=== PATIENT | female | born 1955 | race Caucasian/White ===

== ENCOUNTER → 2017-01-28 | Outpatient (CLI) | payer OTHER ==
[~2017-01-28] MED LIST: CITA20TA9 PO; ENOX60IN SQ; FLV1 PO; FLV400 PO; LORA-741 PO; LVNIS60 INJ; WARF5TAB7 PO; WARF5TAB90 PO
--- NOTE | 2017-01-29 14:53 | MAMMOGRAPHY REPORT ---
BILATERAL DIGITAL SCREENING MAMMOGRAM TOMOSYNTHESIS WITH CAD: 01/28/2017 CLINICAL HISTORY: Routine screening. Patient has no complaints. TECHNIQUE: Breast tomosynthesis in addition to standard 2D mammography was performed. Current study was also evaluated with a Computer Aided Detection (CAD) system. COMPARISON: Comparison is made to exams dated: 10/06/2015 mammogram, 10/05/2014 mammogram, 10/04/2013 mammogram, 10/01/2012 mammogram, 10/01/2011 mammogram, and 09/28/2010 mammogram - [facility]. BREAST COMPOSITION: There are scattered areas of fibroglandular density in both breasts. FINDINGS: The parenchymal pattern is similar to prior exams. No developing mass, architectural dis tortion or cluster of suspicious microcalcifications is seen in either breast. IMPRESSION: ACR BI-RADS CATEGORY 2: BENIGN There is no mammographic evidence of malignancy. A 1 year screening mammogram is recommended. The p atient will receive written notification of the results. Approximately 10% of breast cancers are not detected with mammography. A negative mammographic repor t should not delay biopsy if a clinically suggestive mass is present. Tahira Ann M.D. ay/:01/28/2017 17:45:20 De Icer Installer: Jael Dodge, [facility] letter sent: Normal 1/2 BI-RADS Code: ACR BI-RADS Category 2: Benign
== END | disposition home or self-care (01) ==
LOC: C.MAMM 16:06
PROVIDERS: ATTEND Family Medicine
DX: Z12.31 Encounter for screening mammogram for malignant neoplasm of breast (principal)

== ENCOUNTER 2017-03-27 16:10 | Emergency (ER) | payer OTHER ==
[~2017-03-27] VITALS: Ht 162.6 cm; Wt 64.2 kg
[~2017-03-27 16:10] MED LIST changes: -ENOX60IN SQ; -FLV1 PO; -FLV400 PO; -LVNIS60 INJ; -WARF5TAB7 PO; -WARF5TAB90 PO
[2017-03-27 16:18] VITALS: TEMP 36.6; Ht 162.6 cm; Wt 64.2 kg
--- NOTE | 2017-03-27 17:20 | DIAGNOSTIC IMAGING REPORT ---
LEFT KNEE 3 VIEWS CLINICAL HISTORY: Left leg pain and swelling. FINDINGS: AP, crosstable lateral, and sunrise views of the left knee are obtained. No prior studies are available for comparison at the time of dictation. The skeletal structures are osteopenic. No fracture is seen. There is mild tricompartmental degenerative joint space narrowing, greatest at the patellofemoral articulation. No large joint effusion is identified. Mild soft tissue swelling is noted. IMPRESSION: Mild soft tissue swelling with no acute bony abnormality identified. Electronically signed by: Lawrence Cunningham M.D. 03/27/2017 5:19 PM Dictated Date/Time: 03/27/2017 5:11 PM
--- NOTE | 2017-03-27 17:51 | DIAGNOSTIC IMAGING REPORT ---
LEFT LOWER EXTREMITY VENOUS DOPPLER CLINICAL HISTORY: Pain/swelling behind left knee. Old hx of PE. COMPARISON STUDY: No previous studies for comparison. TECHNIQUE: Sonography of the deep venous system of the left lower extremity was performed. Compression and augmentation were evaluated. FINDINGS: There is nonocclusive deep venous thrombus within the left popliteal vein. No additional sites of deep venous thrombus were identified within the left lower extremity. There is a 4.8 x 3.9 x 1.8 cm left popliteal cyst. IMPRESSION: 1. Nonocclusive deep venous thrombus within the left popliteal vein. This thrombus is age indeterminate. 2. 4.8 x 3.9 x 1.8 cm left popliteal cyst. Electronically signed by: Rajan Kramer M.D. 03/27/2017 5:49 PM Dictated Date/Time: 03/27/2017 5:47 PM
[2017-03-27] MEDS ORDERED: LOVENOX TEACHING KIT STA (18:38)
[2017-03-27 18:52] LABS: BASO % 0.2 %; BASO ABS # 0.01 K/uL (0-0.2); COMPLETE YES; EOS % 2.3 %; HEMATOCRIT 42.8 % (37-47); LYMPH ABS # 2.36 K/uL (1.2-3.4); MEAN CELL VOLUME 93.2 fL (80-100); MEAN CORPUSCULAR HGB CONC 34.3 g/dl (32-36); MEAN PLATELET VOLUME 10.1 fL (7.4-10.4); MONO % 6.3 %; NEUT % 50.2 %; PLATELET COUNT 255 K/uL (130-400); RED BLOOD COUNT 4.59 M/uL (4.2-5.4); WHITE BLOOD COUNT 5.76 K/uL (4.8-10.8)
[2017-03-27 19:10] LABS: PARTIAL THROMBOPLASTIN RATIO 0.9; PROTHROMBIN TIME (PATIENT) 10.6 SECONDS (9.0-12.0)
[2017-03-27 19:13] LABS: BUN/CREATININE RATIO 19.9 (10-20); CALCIUM 9.6 mg/dl (8.5-10.1); CREATININE 0.87 mg/dl (0.60-1.20); POTASSIUM 3.9 mmol/L (3.5-5.1)
[2017-03-27 19:15] LABS: ALB/GLOB RATIO 1.2 (0.9-2)
[2017-03-27] MEDS ORDERED: ENOXAPARIN 60 MG/0.6 ML SYR SQ ONE (19:15)
[2017-03-27] MEDS ORDERED: WARFARIN SOD 5 MG TAB PO ONE (19:15)
[2017-03-27] MEDS ORDERED: ENOXAPARIN 100 MG/1ML SYR ONE (19:37)
[2017-03-27] MEDS ORDERED: ENOX60IN SQ (19:44)
[2017-03-27] MEDS ORDERED: WARF5TAB90 PO (19:44)
[2017-03-27 19:57] VITALS: BP 127/83; PULSE 70; O2SAT 99
--- NOTE | 2017-03-27 22:26 | EMERGENCY ROOM VISIT NOTE ---
History First contact with patient: 16:34 Chief Complaint: KNEEPAIN Stated Complaint: LEFT LEG PAIN, LUMP BEHIND KNEE History of Present Illness The patient is a 61 year old female who presents to the Emergency Room with complaints of pain and swelling behind her left knee for the past several days. The patient has not had fever or chills. She does not recall injury or trauma. 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 She was on Coumadin for 6 months, and has not been on it since. This episode occurred several years ago while she was on control, and it was felt to be related to this medication. The patient has not had recent travel history. She rates her discomfort a 5/10 without radiation. She has not taken anything over-the- counter for her discomfort. Review of Systems More than 10 systems were reviewed and otherwise negative with the exception of history of present illness. Past Medical/Surgical History Medical Problems: (1) Acute sinusitis (2) Carpal tunnel syndrome (3) Depressive Disorder Nec (4) Esophageal Reflux (5) Laryngitis (6) Migraine Unspecified W/O Intract Mgrn W/O Status Migrainosus (7) Personal History Of Pulmonary Embolism Surgical Problems: (1) H/O sinus surgery (2) H/O: hysterectomy (3) S/P carpal tunnel release Family History No pertinent family history Social History Smoking Status: Former Smoker Alcohol Use: none Drug Use: none Marital Status: Housing Status: lives with family Occupation Status: employed Current/Historical Medications Scheduled Enoxaparin (Lovenox), 60 MG SQ Q12H Warfarin Sodium (Coumadin), 1 TAB PO DAILY Allergies Coded Allergies: Ascorbic Acid & Derivatives (Verified Allergy, Unknown, 03/27/17) Physical Exam Vital Signs Date Time Temp Pulse Resp B/P (MAP) Pulse Ox O2 Delivery O2 Flow Rate FiO2 03/27/17 19:57 70 18 127/83 99 Room Air 03/27/17 18:34 71 115/57 96 Room Air 03/27/17 16:18 36.6 71 18 130/87 100 Room Air Pain Rating (0-10): 4.0 Physical Exam VITALS: Vitals are noted on the nurse's note and reviewed by myself. Vital signs stable. GENERAL: Well-developed, well-nourished, white female, who is in no acute distress and resting comfortably. Patient is cooperative with the examination. HEAD: Normocephalic atraumatic. HEART: Regular rate and rhythm without murmurs gallops or rubs. LUNGS: Clear to auscultation bilaterally without wheezes, rales or rhonchi. No retractions or accessory muscle use. MUSCULOSKELETAL: Edema is appreciated behind the left knee without distinct palpable cord or evidence of cellulitis. Clinically this is in the area of the patient's concern. No tenderness of the calf or posterior thigh. NEURO: Patient was alert and oriented to person place and time. CN II through XII grossly intact. Medical Decision & Procedures ER Provider Diagnostic Interpretation: LEFT KNEE 3 VIEWS CLINICAL HISTORY: Left leg pain and swelling. FINDINGS: AP, crosstable lateral, and sunrise views of the left knee are obtained. No prior studies are available for comparison at the time of dictation. The skeletal structures are osteopenic. No fracture is seen. There is mild tricompartmental degenerative joint space narrowing, greatest at the patellofemoral articulation. No large joint effusion is identified. Mild soft tissue swelling is noted. IMPRESSION: Mild soft tissue swelling with no acute bony abnormality identified. LEFT LOWER EXTREMITY VENOUS DOPPLER CLINICAL HISTORY: Pain/swelling behind left knee. Old hx of PE. COMPARISON STUDY: No previous studies for comparison. TECHNIQUE: Sonography of the deep venous system of the left lower extremity was performed. Compression and augmentation were evaluated. FINDINGS: There is nonocclusive deep venous thrombus within the left popliteal vein. No additional sites of deep venous thrombus were identified within the left lower extremity. There is a 4.8 x 3.9 x 1.8 cm left popliteal cyst. IMPRESSION: 1. Nonocclusive deep venous thrombus within the left popliteal vein. This thrombus is age indeterminate. 2. 4.8 x 3.9 x 1.8 cm left popliteal cyst. Laboratory Results 03/27/17 18:30 Red Blood Count 4.59, Mean Corpuscular Volume 93.2, Mean Corpuscular Hemoglobin 32.0, Mean Corpuscular Hemoglobin Concent 34.3, Mean Platelet Volume 10.1, Neutrophils (%) (Auto) 50.2, Lymphocytes (%) (Auto) 41.0, Monocytes (%) (Auto) 6.3, Eosinophils (%) (Auto) 2.3, Basophils (%) (Auto) 0.2, Neutrophils # (Auto) 2.90, Lymphocytes # (Auto) 2.36, Monocytes # (Auto) 0.36, Eosinophils # (Auto) 0.13, Basophils # (Auto) 0.01 03/27/17 18:30 Test 03/27/17 18:30 03/27/17 19:17 White Blood Count 5.76 K/uL (4.8-10.8) Red Blood Count 4.59 M/uL (4.2-5.4) Hemoglobin 14.7 g/dL (12.0-16.0) Hematocrit 42.8 % (37-47) Mean Corpuscular Volume 93.2 fL (80-100) Mean Corpuscular Hemoglobin 32.0 pg (25-34) Mean Corpuscular Hemoglobin Concent 34.3 g/dl (32-36) Platelet Count 255 K/uL (130-400) Mean Platelet Volume 10.1 fL (7.4-10.4) Neutrophils (%) (Auto) 50.2 % Lymphocytes (%) (Auto) 41.0 % Monocytes (%) (Auto) 6.3 % Eosinophils (%) (Auto) 2.3 % Basophils (%) (Auto) 0.2 % Neutrophils # (Auto) 2.90 K/uL (1.4-6.5) Lymphocytes # (Auto) 2.36 K/uL (1.2-3.4) Monocytes # (Auto) 0.36 K/uL (0.11-0.59) Eosinophils # (Auto) 0.13 K/uL (0-0.5) Basophils # (Auto) 0.01 K/uL (0-0.2) RDW Standard Deviation 41.9 fL (36.4-46.3) RDW Coefficient of Variation 12.4 % (11.5-14.5) Immature Granulocyte % (Auto) 0.0 % Immature Granulocyte # (Auto) 0.00 K/uL (0.00-0.02) Prothrombin Time 10.6 SECONDS (9.0-12.0) Prothromb Time International Ratio 1.0 (0.9-1.1) Activated Partial Thromboplast Time 24.3 SECONDS (21.0-31.0) Partial Thromboplastin Ratio 0.9 Anion Gap 7.0 mmol/L (3-11) Est Creatinine Clear Calc Drug Dose 58.7 ml/min Estimated GFR () 83.3 Estimated GFR (Non- 71.9 BUN/Creatinine Ratio 19.9 (10-20) Calcium Level 9.6 mg/dl (8.5-10.1) Total Bilirubin 0.5 mg/dl (0.2-1) Aspartate Amino Transf (AST/SGOT) 20 U/L (15-37) Alanine Aminotransferase (ALT/SGPT) 22 U/L (12-78) Alkaline Phosphatase 92 U/L (45-117) Total Protein 8.2 gm/dl (6.4-8.2) Albumin 4.4 gm/dl (3.4-5.0) Globulin 3.8 gm/dl (2.5-4.0) Albumin/Globulin Ratio 1.2 (0.9-2) Medications Administered Medications (Trade) Dose Ordered Sig/Yanira Route Start Time Stop Time Status Last Admin Dose Admin Miscellaneous (Lovenox Teaching Kit) 1 ea NOW STAT N/A 03/27/17 18:38 03/27/17 18:39 DC 03/27/17 19:00 1 EA Enoxaparin Sodium (Lovenox Inj) 60 mg NOW ONCE SQ 03/27/17 19:15 03/27/17 19:16 DC 03/27/17 19:15 60 MG Warfarin Sodium (Coumadin Tab) 10 mg NOW ONCE PO 03/27/17 19:15 03/27/17 19:16 DC 03/27/17 19:43 10 MG ED Course Physical exam and history were performed. Nursing notes, EMR, and Medication List were personally reviewed. Patient appears to have pain and swelling behind her left knee. She does have an old history of PE/DVT and does not recall injury. The patient does not appear toxic on examination. She is not having chest pain or shortness of breath. X-ray and ultrasound were performed. The patient's x-ray is as above and does not show significant acute findings. The ultrasound, however, does show a DVT in the area of clinical concern. This is felt to be acute based on the chronicity of the patient's symptoms. Because of her acute DVT I did elect to draw labs. The patient's blood work is as above and was reviewed. She does not have a significantly elevated white blood cell count, gross anemia, or evidence of thrombocytopenia. Renal function is within normal limits. A hypercoagulable panel was obtained, however this is a send out lab set, and is not available at the time of this dictation. I discussed options of care with the patient. She does not have history of recent surgery or cancer. She does not have obvious contraindications to anticoagulation. A Lovenox instruction kit was reviewed with the patient by the ER pharmacist. The patient will be started on twice a day Lovenox and given a first dose of 10 mg oral Coumadin here in the department. I was able to contact her pharmacy, and they do have Lovenox in stock that she can pickle pumper EMR morning. She will be given a continuation course of the Coumadin. Ultimately the patient will need very close follow-up. I recommend that she contact her primary care physician's office in the morning to arrange a visit. She will likely need referral to the anticoagulation clinic. She'll also need blood work in the next few days, and this can be facilitated by her primary care physician. I did ask case management to contact the patient tomorrow to confirm that she was able to establish outpatient services. The patient understands the importance of returning to the ER if she has any difficulty with medication or follow-up. If she has any worsening of her symptoms she is to return to the ER. The patient was pleased with this plan and voiced understanding. She rated her discomfort a 0/10 at the time of departure. The chart was completed utilizing [employer] Voice Recognition Software. Grammatical errors, random word insertions, pronoun errors, and incomplete sentences are an occasional consequence of this system due to software limitations, ambient noise, and hardware issues. Any formal questions or concerns about the content, text, or information contained within the body of this dictation should be directly addressed to the provider for clarification. . Medical Decision Differential diagnosis: Etiologies such as DVT, musculoskeletal, infection, joint effusion, trauma, lymphedema, idiopathic, CHF, as well as others were entertained.. Impression Primary Impression: DVT (deep venous thrombosis) Departure Information Dispostion Home / Self-Care Condition GOOD Prescriptions Warfarin Sodium (COUMADIN) 5 Mg Tab 1 TAB PO DAILY for 30 Days, #30 TAB 0 Refills Prov: Idris Phelan PA-C 03/27/17 Enoxaparin (Lovenox) 60 Mg/0.6 Ml Inj 60 MG SQ Q12H for 7 Days, #14 SYR Prov: Idris Phelan PA-C 03/27/17 Forms HOME CARE DOCUMENTATION FORM, IMPORTANT VISIT INFORMATION Patient Instructions DVT, Anticoagulants, My [facility] Additional Instructions You were seen and evaluated today on an emergency basis only. This is not a substitute for, or an effort to provide, complete comprehensive medical care. It is not possible to recognize and treat all injuries or illnesses in a single emergency department visit. For this reason it is recommended that you followup with Your primary care physician's office tomorrow by telephone. Let them know you were seen in the emergency department today and that you will need to be seen. You will need repeat blood work on 03/31/2017. You will have started blood thinners and will need a repeat PT/PTT/INR. Use Lovenox 60 mg twice daily subcutaneous injection for the next 7 days. The prescription was sent to your pharmacy and they do have this medication in stock. Please take this up first thing in the morning. Take Coumadin 5 mg daily until otherwise instructed Your primary care physician is able to refer you to the Coumadin clinic, and this should be done as soon as possible. We will have case management contact you tomorrow to confirm that you have appropriate services in place. You are welcome to return to the emergency department anytime with new, worsening, or concerning symptoms.
== END 2017-03-27 20:08 | disposition home or self-care (01) ==
LOC: C.EDB 16:11 → C.EDD 20:08
DX: I82.402 Acute embolism and thrombosis of unspecified deep veins of left lower extremity (principal); F32.9 Major depressive disorder, single episode, unspecified; K21.9 Gastro-esophageal reflux disease without esophagitis; Z86.711 Personal history of pulmonary embolism; Z90.710 Acquired absence of both cervix and uterus; Z87.891 Personal history of nicotine dependence; Z98.890 Other specified postprocedural states; Z79.01 Long term (current) use of anticoagulants; Z79.899 Other long term (current) drug therapy; Z88.8 Allergy status to other drugs, medicaments and biological substances

== ENCOUNTER 2017-04-02 10:15 | Emergency (ER) | payer OTHER ==
[~2017-04-02] VITALS: Ht 162.6 cm; Wt 63.8 kg
[~2017-04-02 10:15] MED LIST changes: -CITA20TA9 PO; +ENOX60IN SQ; -LORA-741 PO; +WARF5TAB90 PO
[2017-04-02 10:26] VITALS: TEMP 36.4; Ht 162.6 cm; Wt 63.8 kg
[2017-04-02 10:52] VITALS: O2SAT 97
[2017-04-02] MEDS ORDERED: OPTIRAY 320 IV PRN (11:00)
[2017-04-02 11:02] LABS: HEMATOCRIT 40.1 % (37-47); MEAN CORPUSCULAR HEMOGLOBIN 32.2 pg (25-34); MEAN CORPUSCULAR HGB CONC 33.9 g/dl (32-36); MEAN PLATELET VOLUME 10.1 fL (7.4-10.4); PLATELET COUNT 236 K/uL (130-400); RED BLOOD COUNT 4.22 M/uL (4.2-5.4); WHITE BLOOD COUNT 5.69 K/uL (4.8-10.8)
[2017-04-02 11:08] LABS: INR 1.9 (0.9-1.1); PROTHROMBIN TIME (PATIENT) 20.9 SECONDS (9.0-12.0)
[2017-04-02 11:13] LABS: BLOOD UREA NITROGEN 19 mg/dl (7-18); BUN/CREATININE RATIO 22.8 (10-20); CALCIUM 9.4 mg/dl (8.5-10.1); CARBON DIOXIDE 32 mmol/L (21-32); CHLORIDE 106 mmol/L (98-107); CREATININE 0.84 mg/dl (0.60-1.20); GLUCOSE 78 mg/dl (70-99); POTASSIUM 3.6 mmol/L (3.5-5.1); SODIUM 142 mmol/L (136-145)
--- NOTE | 2017-04-02 12:31 | DIAGNOSTIC IMAGING REPORT ---
CT ANGIOGRAPHY OF THE CHEST, PULMONARY EMBOLUS PROTOCOL CLINICAL HISTORY: Chest pain. History of pulmonary emboli. COMPARISON STUDY: Chest CT T. March 09 2014 and chest radiograph April 11, 2016. TECHNIQUE: Following IV administration of 93 mL of Optiray-320, helical axial images of the chest were obtained utilizing the pulmonary embolus protocol. Maximal intensity projections and sagittal and coronal reformats were viewed on an independent 3D workstation. IV contrast was administered without complication. CT DOSE: 207.55 mGy.cm FINDINGS: No enlarged axillary, mediastinal or hilar lymph nodes are present. The size of the heart is normal. There is no pericardial effusion. Central airways are patent. There is no consolidation to suggest pneumonia. There are several small segmental pulmonary emboli within the posterior basilar segment of the right lower lobe. These were not present on CT of March 09, 2014. Bony thorax is unremarkable as is the upper abdomen. IMPRESSION: Several small segmental pulmonary emboli within the posterior basilar segment of the right lower lobe, likely acute. Electronically signed by: Rajan Kramer M.D. 04/02/2017 12:17 PM Dictated Date/Time: 04/02/2017 12:09 PM
[2017-04-02] MEDS ORDERED: WARFARIN SOD 5 MG TAB PO ONE (13:00)
[2017-04-02] MEDS ORDERED: ENOXAPARIN 1 MG/KG SQ SCH (13:00)
[2017-04-02] MEDS ORDERED: ENOXAPARIN 60 MG/0.6 ML SYR SQ ONE (13:30)
--- NOTE | 2017-04-02 13:43 | EMERGENCY ROOM VISIT NOTE ---
History Report prepared by Jyothi: Margareth Martin Under the Supervision of: Dr. Avinash Lopez M.D. First contact with patient: 10:40 Chief Complaint: CARDIAC ASSESSMENT Stated Complaint: CHEST PAIN Nursing Triage Summary: per shampooer: pt c/o left shoulder pain that radiates to left side of chest since 949 pt denies SOB. pt states she is on coumadin for DVT to left leg History of Present Illness The patient is a 61 year old female who presents to the Emergency Room with complaints of persistent chest pain starting 1 hour ago. The pain started in her left shoulder and radiates into her left chest. She describes the pain as a tightness with some sharp pains. The pain is starting to subside. At worst it was 7/10 in severity. She currently rates her discomfort as a 5/10 in severity. After the pain started to subside, she started feeling nausea, dizziness, and some blurry vision. She denies any SOB. She has a history of anxiety attack and PE. She was recently diagnosed with a DVT in the left leg. She has been on Lovenox and Coumadin. She stopped Lovenox 2 days ago. Her INR was 2.5. Her leg is feeling better. She denies any history of kidney problems. Source of History: patient Onset: 1 hour ago Position: chest (left) Symptom Intensity: 5/10 Quality: sharp, other (tightness) Timing: other (persistent) Associated Symptoms: + nausea, No SOB Note: Pt reports dizziness, blurry vision. Review of Systems All systems have been listed, reviewed, and are negative other than those previously mentioned. Please see Additional Medical History Sheet. Past Medical & Surgical Medical Problems: (1) Acute sinusitis (2) Carpal tunnel syndrome (3) Depressive Disorder Nec (4) Esophageal Reflux (5) Laryngitis (6) Migraine Unspecified W/O Intract Mgrn W/O Status Migrainosus (7) Personal History Of Pulmonary Embolism Surgical Problems: (1) H/O sinus surgery (2) H/O: hysterectomy (3) S/P carpal tunnel release Family History Cancer Hypertension Lung disease Social History Smoking Status: Former Smoker Alcohol Use: occasionally Drug Use: none Marital Status: Housing Status: lives with significant other Occupation Status: employed Current/Historical Medications Scheduled Warfarin Sodium (Coumadin), 1 TAB PO DAILY Allergies Coded Allergies: Ascorbic Acid & Derivatives (Verified Allergy, Unknown, 03/27/17) Physical Exam Vital Signs Date Time Temp Pulse Resp B/P (MAP) Pulse Ox O2 Delivery O2 Flow Rate FiO2 04/02/17 13:48 72 16 121/77 100 Room Air 04/02/17 13:27 80 04/02/17 12:15 61 16 111/72 99 Room Air 04/02/17 10:52 97 Room Air 04/02/17 10:52 97 Room Air 04/02/17 10:47 75 04/02/17 10:28 100 Room Air 04/02/17 10:26 36.4 72 18 136/89 100 Room Air So blood pressure on Shandra is normal and her medications have been reviewed Physical Exam GENERAL: Patient appears in minimal distress, somewhat anxious. Patient awake, alert, oriented x 3. Patient follows commands. Patient does not appear toxic. Patient is adequately hydrated and well-nourished. SKIN: No erythema, pallor, cyanosis or rash HEENT: Normal head, pupils equal, reactive to light and accommodation. LUNGS: Clear to auscultation. No wheezes, no rales, no rhonchi. HEART: No murmurs. No gallops. No rubs ABDOMEN: No masses, no rebound, no hepatomegaly or splenomegaly. EXTREMITIES: No signs of trauma. No pedal or pretibial edema. No calf or thigh tenderness. NEUROLOGIC: Cranial nerves II-XII within normal limits. No gross motor sensory function deficits. Medical Decision & Procedures ER Provider Diagnostic Interpretation: Radiology results as stated below per my review and radiologist interpretation: CT ANGIOGRAPHY OF THE CHEST, PULMONARY EMBOLUS PROTOCOL CLINICAL HISTORY: Chest pain. History of pulmonary emboli. COMPARISON STUDY: Chest CT T. March 09 2014 and chest radiograph April 11, 2016. TECHNIQUE: Following IV administration of 93 mL of Optiray-320, helical axial images of the chest were obtained utilizing the pulmonary embolus protocol. Maximal intensity projections and sagittal and coronal reformats were viewed on an independent 3D workstation. IV contrast was administered without complication. CT DOSE: 207.55 mGy.cm FINDINGS: No enlarged axillary, mediastinal or hilar lymph nodes are present. The size of the heart is normal. There is no pericardial effusion. Central airways are patent. There is no consolidation to suggest pneumonia. There are several small segmental pulmonary emboli within the posterior basilar segment of the right lower lobe. These were not present on CT of March 09, 2014. Bony thorax is unremarkable as is the upper abdomen. IMPRESSION: Several small segmental pulmonary emboli within the posterior basilar segment of the right lower lobe, likely acute. Electronically signed by: Rajan Kramer M.D. 04/02/2017 12:17 PM Dictated Date/Time: 04/02/2017 12:09 PM Laboratory Results 04/02/17 10:45 04/02/17 10:45 Test 04/02/17 10:45 Red Blood Count 4.22 M/uL (4.2-5.4) Mean Corpuscular Volume 95.0 fL (80-100) Mean Corpuscular Hemoglobin 32.2 pg (25-34) Mean Corpuscular Hemoglobin Concent 33.9 g/dl (32-36) RDW Standard Deviation 43.9 fL (36.4-46.3) RDW Coefficient of Variation 12.7 % (11.5-14.5) Mean Platelet Volume 10.1 fL (7.4-10.4) Prothrombin Time 20.9 SECONDS (9.0-12.0) Prothromb Time International Ratio 1.9 (0.9-1.1) Anion Gap 4.0 mmol/L (3-11) Est Creatinine Clear Calc Drug Dose 60.8 ml/min Estimated GFR () 86.9 Estimated GFR (Non- 75.0 BUN/Creatinine Ratio 22.8 (10-20) Calcium Level 9.4 mg/dl (8.5-10.1) Troponin I < 0.015 ng/ml (0-0.045) Laboratory results as stated above per my review. Medications Administered Medications (Trade) Dose Ordered Sig/Yanira Route Start Time Stop Time Status Last Admin Dose Admin Warfarin Sodium (Coumadin Tab) 10 mg NOW ONCE PO 04/02/17 13:00 04/02/17 13:01 DC 04/02/17 13:07 10 MG Enoxaparin Sodium (Lovenox Inj) 60 mg 1330 ONCE SQ 04/02/17 13:30 04/02/17 13:31 DC 04/02/17 13:26 60 MG ECG Indication: chest pain Rate (beats per minute): 70 Rhythm: normal sinus Findings: no acute ischemic change, no ectopy ED Course 1042: Past medical records reviewed. The patient was evaluated in room B7. A complete history and physical examination was performed. 1240: I reevaluated the patient. She is doing well. I updated her on the results. 1244: I discussed the patients case with Dr. Espinoza, [facility]. We discussed her recommendations regarding the patient. 1300: Coumadin Tab 10 mg PO. 1330: Lovenox Inj 60 mg SQ. 1335: Upon reevaluation, the patient was doing well. I discussed today's findings with her. She verbalized agreement of the treatment plan. She was discharged home. Medical Decision I considered multiple diagnoses including myocardial infarction, chest wall pain , pericarditis, myocarditis, aortic emergencies, pulmonary embolism, congestive heart failure, GI causes, and other significant cardiopulmonary disorders. The patient is here with left sided chest pain. She was recently diagnosed with a DVT. She is currently taking Coumadin. She has no shortness of breath fever or chills. Multiple labs, EKG and CT of her chest were obtained. Please see above. The patient does have a few small subsegmental PEs on the right side. This seems unlikely to be the source of her pain. Her INR is 1.9. I discussed care with Dr. Espinoza who has been caring for her. We have elected to give the patient 10 mg of Coumadin and 60 mg IM dose of Lovenox. I believe that her pain is most likely from her chest wall. She also somewhat anxious. Medication Reconcilliation Current Medication List: was personally reviewed by me Blood Pressure Screening Patient's blood pressure: Normal blood pressure Consults Time Called: 1243 Consulting Physician: Dr. Espinoza, [facility] Returned Call: 1244 I discussed the patient's case with her. We discussed her recommendations regarding the patient. Impression Primary Impression: Chest wall pain Additional Impression: Pulmonary embolism Scribe Attestation The scribe's documentation has been prepared under my direction and personally reviewed by me in its entirety. I confirm that the note above accurately reflects all work, treatment, procedures, and medical decision making performed by me. Departure Information Dispostion Home / Self-Care Referrals Carlos Gregory D.O. (PCP) Margaret Espinoza M.D., PHD Patient Instructions My [facility] Additional Instructions Follow-up with Dr. Espinoza tomorrow. Apply heat intermittently to your left upper chest. Off work today. You may return to work tomorrow. 650 mg of Tylenol every 4 hours as needed for pain. Problem Qualifiers
[2017-04-02 13:48] VITALS: BP 121/77; PULSE 72; O2SAT 100
[2017-04-10] MEDS ORDERED: WARF5TAB7 PO ×2 (12:35)
[2017-04-10] MEDS ORDERED: FLV400 PO (12:35)
[2017-04-15] MEDS ORDERED: FLV1 PO (14:46)
[2017-05-12] MEDS ORDERED: FLV1 PO (12:46)
== END 2017-04-02 14:00 | disposition home or self-care (01) ==
LOC: C.EDB 10:17
DX: I26.99 Other pulmonary embolism without acute cor pulmonale (principal); I82.402 Acute embolism and thrombosis of unspecified deep veins of left lower extremity; Z79.01 Long term (current) use of anticoagulants; F41.9 Anxiety disorder, unspecified; F32.9 Major depressive disorder, single episode, unspecified; K21.9 Gastro-esophageal reflux disease without esophagitis; Z90.710 Acquired absence of both cervix and uterus; Z80.9 Family history of malignant neoplasm, unspecified; Z82.49 Family history of ischemic heart disease and other diseases of the circulatory system; Z87.891 Personal history of nicotine dependence

== ENCOUNTER 2017-04-24 10:05 | Emergency (ER) | payer OTHER ==
[~2017-04-24] VITALS: Ht 162.6 cm; Wt 62.5 kg
[~2017-04-24 10:05] MED LIST changes: -ENOX60IN SQ; +FLV1 PO; +WARF5TAB7 PO; -WARF5TAB90 PO
[2017-04-24 10:08] VITALS: TEMP 36.5; Ht 162.6 cm; Wt 62.5 kg
[2017-04-24 10:19] VITALS: O2SAT 100
[2017-04-24] MEDS ORDERED: LVNIS60 INJ (10:23)
--- NOTE | 2017-04-24 10:57 | EMERGENCY ROOM VISIT NOTE ---
History Report prepared by Jyothi: Thania Wayne Under the Supervision of: Dr. Avinash Lopez M.D. First contact with patient: 10:33 Chief Complaint: NEURO SYMPTOMS Stated Complaint: STROKE SYMPTOMS Nursing Triage Summary: pt was at coumadin clinic sent here for ecval of possible stroke sx feels nauseated and numbness and tingling throughout body. sx started 1 hour ago History of Present Illness The patient is a 61 year old female who presents to the Emergency Room with complaints of a persistent tingling and generalized numbness that started this morning. The patient states that she was in the ED about a month ago and was put on Coumadin and Lovenox for a DVT in her left leg. She notes that she feels foggy and dizzy and has left lower leg pain and tightness. She denies and abdominal pain, shortness of breath, or numbness around her mouth. The patient had a hysterectomy several years ago and also has a history of PE. Source of History: patient Onset: This morning Position: other (generalized) Quality: tingling, numbness Associated Symptoms: No SOB, No abdominal pain, No numbness (around mouth) Note: Left lower leg pain and tightness. Review of Systems All systems have been listed, reviewed, and are negative other than those previously mentioned. Please see Additional Medical History Sheet. Past Medical & Surgical Medical Problems: (1) Acute sinusitis (2) Anxiety (3) Carpal tunnel syndrome (4) Depressive Disorder Nec (5) Esophageal Reflux (6) Laryngitis (7) Migraine Unspecified W/O Intract Mgrn W/O Status Migrainosus (8) Personal History Of Pulmonary Embolism (9) Pulmonary embolism Surgical Problems: (1) H/O sinus surgery (2) H/O: hysterectomy (3) History of hysterectomy (4) Previous section (5) S/P carpal tunnel release (6) Status post tonsillectomy and adenoidectomy Family History Cancer Hypertension Lung disease Social History Smoking Status: Never Smoker Alcohol Use: occasionally Drug Use: none Marital Status: Housing Status: lives with significant other Occupation Status: employed Current/Historical Medications Scheduled Enoxaparin (Enoxaparin Sodium), 60 MG INJ Q12 Warfarin Sod (Jantoven), 10 MG PO WK Warfarin Sod (Jantoven), 7.5 MG PO WK Allergies Coded Allergies: Ascorbic Acid & Derivatives (Verified Allergy, Unknown, 03/27/17) Physical Exam Vital Signs Date Time Temp Pulse Resp B/P (MAP) Pulse Ox O2 Delivery O2 Flow Rate FiO2 04/24/17 13:11 66 20 120/79 99 Room Air 04/24/17 11:47 63 18 114/68 99 Room Air 04/24/17 10:40 79 04/24/17 10:19 100 Room Air 04/24/17 10:08 36.5 93 20 150/101 96 Room Air Physical Exam GENERAL: Patient awake, alert, oriented x 3. Patient follows commands. Patient does not appear toxic. Patient is adequately hydrated and well- nourished. SKIN: No erythema, pallor, cyanosis or rash HEENT: Normal head, pupils equal, reactive to light and accommodation. Ears normal. Oral cavity and posterior pharynx appear normal. Neck: Without adenopathy, no neck vein distention. LUNGS: Clear to auscultation. No wheezes, no rales, no rhonchi. HEART: No murmurs. No gallops. No rubs ABDOMEN: No masses, no rebound, no hepatomegaly or splenomegaly. EXTREMITIES: No signs of trauma. No pedal or pretibial edema. No calf or thigh tenderness. NEUROLOGIC: Cranial nerves II-XII within normal limits. No gross motor sensory function deficits. Medical Decision & Procedures ER Provider Diagnostic Interpretation: Radiology results as stated below per my review and radiologist interpretation: CHEST 2 VIEWS ROUTINE FINDINGS: Lung volumes are normal. No pneumothorax or pleural effusion is identified. There is no evidence of pulmonary edema. Cardiomediastinal silhouette is normal. No consolidation is identified. IMPRESSION: No acute cardiopulmonary findings. Electronically signed by: Rajan Kramer M.D HEAD WITHOUT CONTRAST (CT) FINDINGS: No acute intracranial hemorrhage, midline shift, mass, large territorial ischemia or abnormal extra-axial collection. There is mild bifrontal cerebral atrophy. 2 mm parenchymal calcification of the right frontal lobe is redemonstrated. The calvarium is intact. The paranasal sinuses, mastoid air cells, and middle ear cavities are clear. Orbits are unremarkable. IMPRESSION: Mild bifrontal cerebral atrophy without acute intracranial abnormality. The above report was generated using voice recognition software. It may contain grammatical, syntax or spelling errors. Electronically signed by: Kan Junior M.D. Laboratory Results 8/10/17 10:31 04/24/17 10:31 Test 04/24/17 10:31 04/24/17 10:38 Red Blood Count 4.18 M/uL (4.2-5.4) Mean Corpuscular Volume 93.8 fL (80-100) Mean Corpuscular Hemoglobin 31.3 pg (25-34) Mean Corpuscular Hemoglobin Concent 33.4 g/dl (32-36) RDW Standard Deviation 41.7 fL (36.4-46.3) RDW Coefficient of Variation 12.3 % (11.5-14.5) Mean Platelet Volume 10.0 fL (7.4-10.4) Anion Gap 3.0 mmol/L (3-11) Est Creatinine Clear Calc Drug Dose 60.1 ml/min Estimated GFR () 85.7 Estimated GFR (Non- 74.0 BUN/Creatinine Ratio 20.4 (10-20) Calcium Level 9.2 mg/dl (8.5-10.1) Troponin I < 0.015 ng/ml (0-0.045) Bedside Glucose 91 mg/dl (70-90) Laboratory results as stated above per my review. ECG Indication: other (numbness) Rate (beats per minute): 72 Rhythm: normal sinus Findings: no acute ischemic change, no ectopy ED Course 1035: Past medical records reviewed. The patient was evaluated in room B12. A complete history and physical examination was performed. 1330: I reevaluated and updated the patient. She is doing well. 1350: I reevaluated and updated the patient. She is feeling much better and I reassured her. 1406: Upon reevaluation, the patient appeared to have improvement of her symptoms. I discussed today's findings with the patient. She verbalized agreement of the treatment plan. The patient was discharged home. Medical Decision Differential diagnosis included but is not limited to: anxiety attack, CVA, TIA , sciatica, muscular skeletal pain. Patient has a history of coagulopathy with history of PE and DVT. She is currently on Coumadin. INR this morning was 2.0. She arrived here rather anxious and feeling numb all over. Her symptoms are most consistent with anxiety reaction/hyperventilation. Multiple labs, EKG and imaging were obtained. Please see above. The patient has no focal findings. The patient does have some pain in her leg but this is not consistent with a DVT and is much more consistent with musculoskeletal pain or possibly sciatica. I reassured the patient. I believe that she can safely return home and continue her current medications. Medication Reconcilliation Current Medication List: was personally reviewed by me Blood Pressure Screening Patient's blood pressure: Normal blood pressure Blood pressure disposition: Did not require urgent referral Impression Primary Impression: Anxiety reaction Scribe Attestation The scribe's documentation has been prepared under my direction and personally reviewed by me in its entirety. I confirm that the note above accurately reflects all work, treatment, procedures, and medical decision making performed by me. Departure Information Dispostion Home / Self-Care Referrals Carlos Gregory D.O. (PCP) Forms HOME CARE DOCUMENTATION FORM, IMPORTANT VISIT INFORMATION, WORK / SCHOOL INSTRUCTIONS Patient Instructions My [facility] Additional Instructions Continue all of your current medications as prescribed. Follow-up with the Coumadin clinic. Follow-up with your family physician within the next 10 days. Off work for the rest of the day.
[2017-04-24 11:01] LABS: HEMATOCRIT 39.2 % (37-47); MEAN CELL VOLUME 93.8 fL (80-100); MEAN CORPUSCULAR HEMOGLOBIN 31.3 pg (25-34); MEAN CORPUSCULAR HGB CONC 33.4 g/dl (32-36); PLATELET COUNT 258 K/uL (130-400); RED BLOOD COUNT 4.18 M/uL (4.2-5.4); WHITE BLOOD COUNT 4.37 K/uL (4.8-10.8)
--- NOTE | 2017-04-24 11:09 | DIAGNOSTIC IMAGING REPORT ---
CHEST 2 VIEWS ROUTINE CLINICAL HISTORY: Numbness and tingling. COMPARISON STUDY: Chest radiograph April 11, [address] April 02, 2017. FINDINGS: Lung volumes are normal. No pneumothorax or pleural effusion is identified. There is no evidence of pulmonary edema. Cardiomediastinal silhouette is normal. No consolidation is identified. IMPRESSION: No acute cardiopulmonary findings. Electronically signed by: Rajan Kramer M.D. 04/24/2017 11:07 AM Dictated Date/Time: 04/24/2017 11:06 AM
[2017-04-24 11:20] LABS: BLOOD UREA NITROGEN 17 mg/dl (7-18); BUN/CREATININE RATIO 20.4 (10-20); CALCIUM 9.2 mg/dl (8.5-10.1); CARBON DIOXIDE 31 mmol/L (21-32); CHLORIDE 107 mmol/L (98-107); CREATININE 0.85 mg/dl (0.60-1.20); GLUCOSE 76 mg/dl (70-99); POTASSIUM 3.7 mmol/L (3.5-5.1); SODIUM 141 mmol/L (136-145)
--- NOTE | 2017-04-24 13:02 | DIAGNOSTIC IMAGING REPORT ---
HEAD WITHOUT CONTRAST (CT) CLINICAL HISTORY: 61 years-old Female with numbness all over. Symptoms are acute in nature TECHNIQUE: Multiple axial CT images of the head were obtained without contrast. A dose lowering technique was utilized adhering to the principles of ALARA. CT DOSE: 690.05 mGycm COMPARISON: CT head 04/11/2016. FINDINGS: No acute intracranial hemorrhage, midline shift, mass, large territorial ischemia or abnormal extra-axial collection. There is mild bifrontal cerebral atrophy. 2 mm parenchymal calcification of the right frontal lobe is redemonstrated. The calvarium is intact. The paranasal sinuses, mastoid air cells, and middle ear cavities are clear. Orbits are unremarkable. IMPRESSION: Mild bifrontal cerebral atrophy without acute intracranial abnormality. The above report was generated using voice recognition software. It may contain grammatical, syntax or spelling errors. Electronically signed by: Kan Junior M.D. 04/24/2017 1:00 PM Dictated Date/Time: 04/24/2017 12:58 PM
[2017-04-24 14:10] VITALS: BP 119/71; PULSE 60; O2SAT 100
[2017-05-12] MEDS ORDERED: FLV1 PO (12:46)
== END 2017-04-24 14:11 | disposition home or self-care (01) ==
LOC: C.EDB 10:06
DX: R41.1 Anterograde amnesia (principal); F32.9 Major depressive disorder, single episode, unspecified; K21.9 Gastro-esophageal reflux disease without esophagitis; Z86.711 Personal history of pulmonary embolism; Z90.710 Acquired absence of both cervix and uterus; Z98.890 Other specified postprocedural states; Z79.01 Long term (current) use of anticoagulants; Z79.899 Other long term (current) drug therapy; Z88.8 Allergy status to other drugs, medicaments and biological substances; Z80.9 Family history of malignant neoplasm, unspecified; Z82.49 Family history of ischemic heart disease and other diseases of the circulatory system

== ENCOUNTER 2017-09-22 11:56 | Emergency (ER) | payer OTHER ==
[~2017-09-22] VITALS: Ht 162.6 cm; Wt 65.5 kg
[2017-09-22 12:01] VITALS: TEMP 36.5; Ht 162.6 cm; Wt 65.5 kg
[2017-09-22] MEDS ORDERED: OPTIRAY 320 IV PRN (12:30)
[2017-09-22 12:51] LABS: HEMATOCRIT 39.1 % (37-47); HEMOGLOBIN 13.2 g/dL (12.0-16.0); MEAN CELL VOLUME 95.8 fL (80-100); MEAN CORPUSCULAR HEMOGLOBIN 32.4 pg (25-34); MEAN CORPUSCULAR HGB CONC 33.8 g/dl (32-36); MEAN PLATELET VOLUME 9.9 fL (7.4-10.4); PLATELET COUNT 281 K/uL (130-400); RED CELL DISTRIBUTION WIDTH CV 13.1 % (11.5-14.5); RED CELL DISTRIBUTION WIDTH SD 45.6 fL (36.4-46.3)
[2017-09-22 12:59] LABS: INR 2.6 (0.9-1.1); PTT PATIENT 35.5 SECONDS (21.0-31.0)
[2017-09-22 13:16] LABS: ALBUMIN 3.9 gm/dl (3.4-5.0); ALT/SGPT 25 U/L (12-78); AST/SGOT 19 U/L (15-37); BLOOD UREA NITROGEN 14 mg/dl (7-18); CALCIUM 9.1 mg/dl (8.5-10.1); CARBON DIOXIDE 30 mmol/L (21-32); CREATININE 0.91 mg/dl (0.60-1.20); GLUCOSE 86 mg/dl (70-99); POTASSIUM 3.5 mmol/L (3.5-5.1); SODIUM 136 mmol/L (136-145)
[2017-09-22 13:21] LABS: ALKALINE PHOSPHATASE 98 U/L (45-117); CKMB 1.1 ng/ml (0.5-3.6); LIPASE 305 U/L (73-393)
--- NOTE | 2017-09-22 13:52 | EMERGENCY ROOM VISIT NOTE ---
History Report prepared by Jyothi: Margareth Martin Under the Supervision of: Dr. Lawrence Menjivar M.D. First contact with patient: 12:06 Chief Complaint: CHEST PAIN Stated Complaint: CHEST PAIN History of Present Illness The patient is a 61 year old female who presents to the Emergency Room with complaints of intermittent chest pain starting 11 hours ago. The patient woke up around 0100 this morning with low mid chest pain which she rates as a 9/10 in severity. The pain shot through to her back. She had some nausea, diaphoresis , and dizziness with the pain. This lasted for around 5 minutes. She has had some intermittent chest discomfort since then. This discomfort did not occur with exertion. She denies any SOB. The patient has a history of blood clots and anxiety attacks. The chest pain this morning felt different from her anxiety attacks. She has a blood clot behind her leg which was diagnosed around 7 months ago. She also had some small PEs at that time. She notes the clot behind her leg felt smaller today. She has been having more pain in her leg for the past few days. She is on Coumadin. Her last INR 1 month ago was 3.2. She held her Coumadin for 1 day at that time. She still has her gallbladder. She denies any history of gallbladder problems. She ate roast beef and salad for dinner yesterday. She denies any history of heart problems. Source of History: patient Onset: 11 hours ago Position: chest (mid low) Symptom Intensity: 9/10 Quality: other (pain) Timing: intermittent Associated Symptoms: + diaphoresis, + nausea, No SOB Note: Pt reports dizziness. Review of Systems See HPI for pertinent positives & negatives. A total of 10 systems reviewed and were otherwise negative. Past Medical & Surgical Medical Problems: (1) Acute sinusitis (2) Anxiety (3) Carpal tunnel syndrome (4) Depressive Disorder Nec (5) Esophageal Reflux (6) Laryngitis (7) Migraine Unspecified W/O Intract Mgrn W/O Status Migrainosus (8) Personal History Of Pulmonary Embolism (9) Pulmonary embolism Surgical Problems: (1) H/O sinus surgery (2) H/O: hysterectomy (3) History of hysterectomy (4) Previous section (5) S/P carpal tunnel release (6) Status post tonsillectomy and adenoidectomy Family History Cancer Hypertension Lung disease Social History Smoking Status: Former Smoker Alcohol Use: occasionally Drug Use: none Marital Status: Housing Status: lives with significant other Occupation Status: employed Current/Historical Medications Scheduled Folic Acid (Folic Acid), 1 MG PO DAILY Warfarin Sod (Jantoven), 5 MG PO 5XWK Warfarin Sod (Jantoven), 7.5 MG PO 2XWK Allergies Coded Allergies: Ascorbic Acid & Derivatives (Verified Allergy, Unknown, 09/22/17) Physical Exam Vital Signs Date Time Temp Pulse Resp B/P (MAP) Pulse Ox O2 Delivery O2 Flow Rate FiO2 09/22/17 16:00 76 16 120/76 98 Room Air 09/22/17 13:56 65 16 115/75 100 09/22/17 12:27 69 09/22/17 12:01 36.5 65 20 142/91 100 Room Air Physical Exam GENERAL: Patient is in no acute distress. HEENT: No acute trauma, normocephalic atraumatic, mucous membranes moist, no nasal congestion, no scleral icterus. NECK: No stridor, no adenopathy, no meningismus, trachea is midline. LUNGS: Clear to auscultation bilaterally, no wheeze, no rhonchi, breath sounds equal. HEART: Without murmurs gallops or rubs, regular rate and rhythm. ABDOMEN: Soft, nontender, bowel sounds positive, no hernias, no peritonitis. EXTREMITIES: No cyanosis or edema, full range of motion of all the joints without pain or difficulty, no signs for acute trauma. NEUROLOGIC: Oriented x 3, no acute motor or sensory deficits, no focal weakness. SKIN: No rash, no jaundice, no diaphoresis. Medical Decision & Procedures ER Provider Diagnostic Interpretation: Radiology results as stated below per my review and radiologist interpretation: CT ANGIOGRAPHY OF THE CHEST, PULMONARY EMBOLUS PROTOCOL CLINICAL HISTORY: Chest pain. COMPARISON STUDY: Chest CT April 02, 2017 and chest radiograph April 24, 2017. TECHNIQUE: Following IV administration of 85 mL of Optiray-320, helical axial images of the chest were obtained utilizing the pulmonary embolus protocol. Maximal intensity projections and sagittal and coronal reformats were viewed on an independent 3D workstation. IV contrast was administered without complication. A dose lowering technique was utilized adhering to the principles of ALARA. CT DOSE: 197.20 mGy.cm FINDINGS: No pulmonary emboli are identified. The small right lower lobe pulmonary emboli shown on exam of April 02, 2017 are no longer visualized. The size of the heart is normal. There is no pericardial effusion. Thoracic aortic opacification is in adequate to assess for dissection but the caliber of the thoracic aorta is normal. No enlarged axillary, mediastinal or hilar lymph nodes are present. There is no pneumothorax or pleural effusion. No consolidation is present. Central airways are patent. Bony thorax is unremarkable. Upper abdomen is unremarkable. IMPRESSION: 1. No pulmonary emboli identified. Interval resolution of the right lower lobe pulmonary emboli shown on exam of April 02, 2017. 2. No acute intrathoracic findings. Electronically signed by: Rajan Kramer M.D. 09/22/2017 2:05 PM Dictated Date/Time: 09/22/2017 1:49 PM BILIARY ULTRASOUND CLINICAL HISTORY: Epigastric pain COMPARISON STUDY: No previous studies for comparison. FINDINGS: The pancreas appears sonographically normal. The liver appears sonographically normal. The gallbladder appears sonographically normal. There is no right-sided hydronephrosis. There is no ductal dilatation. The common bile duct measures 4 mm. IMPRESSION: Normal biliary ultrasound. Electronically signed by: Mat Kohli M.D. 09/22/2017 3:33 PM Dictated Date/Time: 09/22/2017 3:32 PM Laboratory Results 09/22/17 12:30 09/22/17 12:30 Test 09/22/17 12:30 Red Blood Count 4.08 M/uL (4.2-5.4) Mean Corpuscular Volume 95.8 fL (80-100) Mean Corpuscular Hemoglobin 32.4 pg (25-34) Mean Corpuscular Hemoglobin Concent 33.8 g/dl (32-36) RDW Standard Deviation 45.6 fL (36.4-46.3) RDW Coefficient of Variation 13.1 % (11.5-14.5) Mean Platelet Volume 9.9 fL (7.4-10.4) Prothrombin Time 27.0 SECONDS (9.0-12.0) Prothromb Time International Ratio 2.6 (0.9-1.1) Activated Partial Thromboplast Time 35.5 SECONDS (21.0-31.0) Partial Thromboplastin Ratio 1.4 Anion Gap 5.0 mmol/L (3-11) Est Creatinine Clear Calc Drug Dose 56.1 ml/min Estimated GFR () 78.9 Estimated GFR (Non- 68.1 BUN/Creatinine Ratio 15.9 (10-20) Calcium Level 9.1 mg/dl (8.5-10.1) Total Bilirubin 0.5 mg/dl (0.2-1) Aspartate Amino Transf (AST/SGOT) 19 U/L (15-37) Alanine Aminotransferase (ALT/SGPT) 25 U/L (12-78) Alkaline Phosphatase 98 U/L (45-117) Total Creatine Kinase 88 U/L (26-192) Creatine Kinase MB 1.1 ng/ml (0.5-3.6) Creatine Kinase MB Ratio 1.3 (0-3.0) Troponin I < 0.015 ng/ml (0-0.045) Total Protein 8.0 gm/dl (6.4-8.2) Albumin 3.9 gm/dl (3.4-5.0) Globulin 4.1 gm/dl (2.5-4.0) Albumin/Globulin Ratio 1.0 (0.9-2) Lipase 305 U/L (73-393) Laboratory results reviewed by me. ECG Indication: chest pain Rate (beats per minute): 69 Rhythm: normal sinus Findings: no acute ischemic change, no ectopy ED Course 1212: The patient was evaluated in room B4B. A complete history and physical exam was performed. 1606: Reevaluated the patient. Discussed results and discharge instructions: She verbalized understanding and agreement. The patient is ready for discharge. Medical Decision Differential diagnoses considered include biliary colic, PE, anxiety, aortic dissection, ND, anemia, musculoskeletal pain, reflux. There is no leukocytosis or concerning anemia. No significant electrolyte abnormality, kidney failure or hepatitis. There is no pancreatitis. INR is therapeutic for someone using Coumadin. EKG shows a normal sinus rhythm, no acute ischemia. Cardiac enzyme testing 1 is not consistent with acute cardiac injury. Gallbladder ultrasound does not show evidence for acute cholecystitis or for gallstones. Chest CT does not show evidence for aortic dissection, no new PE, the older, previously known PE has resolved. The patient presents with episodes of epigastric/chest pain. They have been improving in the last few days but she was concerned about the possibility of a new PE. Workup here is reassuring. The pain is not exertional. She is not short of breath. The cause for the pain is unclear but certainly anxiety or reflux are considerations. Musculoskeletal pain is possible as well. The patient will follow with her doctors office and return here for any worsening symptoms or any exertional symptoms. Medication Reconcilliation Current Medication List: was personally reviewed by me Blood Pressure Screening Patient's blood pressure: Elevated blood pressure Blood pressure disposition: Elevated BP felt to be situational Impression Primary Impression: Precordial chest pain Scribe Attestation The scribe's documentation has been prepared under my direction and personally reviewed by me in its entirety. I confirm that the note above accurately reflects all work, treatment, procedures, and medical decision making performed by me. Departure Information Dispostion Home / Self-Care Referrals Carlos Gregory D.O. (PCP) Forms Call Back Authorization, HOME CARE DOCUMENTATION FORM, IMPORTANT VISIT INFORMATION Patient Instructions My [facility] Additional Instructions see ximena jay for recheck this week heart and lung testing today was all ok no new clot in the lungs by CT scan return if worsening
--- NOTE | 2017-09-22 14:07 | DIAGNOSTIC IMAGING REPORT ---
CT ANGIOGRAPHY OF THE CHEST, PULMONARY EMBOLUS PROTOCOL CLINICAL HISTORY: Chest pain. COMPARISON STUDY: Chest CT April 02, 2017 and chest radiograph April 24, 2017. TECHNIQUE: Following IV administration of 85 mL of Optiray-320, helical axial images of the chest were obtained utilizing the pulmonary embolus protocol. Maximal intensity projections and sagittal and coronal reformats were viewed on an independent 3D workstation. IV contrast was administered without complication. A dose lowering technique was utilized adhering to the principles of ALARA. CT DOSE: 197.20 mGy.cm FINDINGS: No pulmonary emboli are identified. The small right lower lobe pulmonary emboli shown on exam of April 02, 2017 are no longer visualized. The size of the heart is normal. There is no pericardial effusion. Thoracic aortic opacification is in adequate to assess for dissection but the caliber of the thoracic aorta is normal. No enlarged axillary, mediastinal or hilar lymph nodes are present. There is no pneumothorax or pleural effusion. No consolidation is present. Central airways are patent. Bony thorax is unremarkable. Upper abdomen is unremarkable. IMPRESSION: 1. No pulmonary emboli identified. Interval resolution of the right lower lobe pulmonary emboli shown on exam of April 02, 2017. 2. No acute intrathoracic findings. Electronically signed by: Rajan Kramer M.D. 09/22/2017 2:05 PM Dictated Date/Time: 09/22/2017 1:49 PM
--- NOTE | 2017-09-22 15:35 | DIAGNOSTIC IMAGING REPORT ---
BILIARY ULTRASOUND CLINICAL HISTORY: Epigastric pain COMPARISON STUDY: No previous studies for comparison. FINDINGS: The pancreas appears sonographically normal. The liver appears sonographically normal. The gallbladder appears sonographically normal. There is no right-sided hydronephrosis. There is no ductal dilatation. The common bile duct measures 4 mm. IMPRESSION: Normal biliary ultrasound. Electronically signed by: Mat Kohli M.D. 09/22/2017 3:33 PM Dictated Date/Time: 09/22/2017 3:32 PM
[2017-09-22 16:00] VITALS: BP 120/76; PULSE 76; O2SAT 98
== END 2017-09-22 16:15 | disposition home or self-care (01) ==
LOC: C.EDB 11:56
DX: R07.2 Precordial pain (principal); F41.9 Anxiety disorder, unspecified; K21.9 Gastro-esophageal reflux disease without esophagitis; Z86.2 Personal history of diseases of the blood and blood-forming organs and certain disorders involving the immune mechanism; Z86.711 Personal history of pulmonary embolism; Z87.891 Personal history of nicotine dependence; Z79.02 Long term (current) use of antithrombotics/antiplatelets; Z82.49 Family history of ischemic heart disease and other diseases of the circulatory system; Z83.6 Family history of other diseases of the respiratory system

== ENCOUNTER → 2017-11-23 | Outpatient (CLI) | payer OTHER ==
[2017-11-23 07:49] LABS: BASO % 0.2 %; BASO ABS # 0.01 K/uL (0-0.2); EOS % 2.3 %; EOS ABS # 0.11 K/uL (0-0.5); HEMATOCRIT 38.3 % (37-47); HEMOGLOBIN 12.9 g/dL (12.0-16.0); IG# 0.01 K/uL (0.00-0.02); LYMPH % 26.4 %; LYMPH ABS # 1.26 K/uL (1.2-3.4); MEAN CELL VOLUME 94.3 fL (80-100); MEAN CORPUSCULAR HEMOGLOBIN 31.8 pg (25-34); MEAN CORPUSCULAR HGB CONC 33.7 g/dl (32-36); MEAN PLATELET VOLUME 9.9 fL (7.4-10.4); MONO % 6.9 %; MONO ABS # 0.33 K/uL (0.11-0.59); NEUT ABS # 3.05 K/uL (1.4-6.5); PLATELET COUNT 262 K/uL (130-400); RED CELL DISTRIBUTION WIDTH CV 12.9 % (11.5-14.5); RED CELL DISTRIBUTION WIDTH SD 44.5 fL (36.4-46.3); WHITE BLOOD COUNT 4.77 K/uL (4.8-10.8)
[2017-11-23 08:57] LABS: GLUCOSE 90 mg/dl (70-99)
[2017-11-23 09:03] LABS: CHOLESTEROL 248 mg/dl (0-200); LDL CHOLESTEROL (DIRECT) 154 mg/dl
== END | disposition home or self-care (01) ==
LOC: C.LAB 07:09
PROVIDERS: ATTEND Family Medicine
DX: Z00.00 Encounter for general adult medical examination without abnormal findings (principal); Z13.220 Encounter for screening for lipoid disorders

== ENCOUNTER 2017-12-31 16:38 | Emergency (ER) | payer OTHER ==
[~2017-12-31] VITALS: Ht 162.6 cm; Wt 65.6 kg
[~2017-12-31 16:38] MED LIST changes: +ATOR10TA82 PO
[2017-12-31 16:47] VITALS: TEMP 36.9; Ht 162.6 cm; Wt 65.6 kg
[2017-12-31] MEDS ORDERED: AMOXICILLIN 500 MG CAP PO STA (17:00)
[2017-12-31] MEDS ORDERED: DEXAMETHASONE SOD INJ 4 MG/ML VIAL PO ONE (17:00)
[2017-12-31] MEDS ORDERED: AMOX500C3 PO (17:06)
[2017-12-31] MEDS ORDERED: PRED50TA PO (17:06)
--- NOTE | 2017-12-31 17:07 | EMERGENCY ROOM VISIT NOTE ---
History First contact with patient: 16:51 Chief Complaint: SORETHROAT Stated Complaint: EXTREME SORE THROAT AND B/L EAR PAIN History of Present Illness The patient is a 62 year old female who presents to the Emergency Room with complaints of severe sore throat for the last 5 days. Patient also complains of bilateral ear pain. She has had chills. She has not taken her temperature. She has tried Tylenol with minimal relief of her symptoms. The patient could not get in with her primary care physician until tomorrow. She is able to swallow, but it is very painful. Review of Systems 6 system review negative. Please see pertinent positives in the history of present illness section. Past Medical/Surgical History Medical Problems: (1) Acute sinusitis (2) Anxiety (3) Carpal tunnel syndrome (4) Depressive Disorder Nec (5) Esophageal Reflux (6) Laryngitis (7) Migraine Unspecified W/O Intract Mgrn W/O Status Migrainosus (8) Personal History Of Pulmonary Embolism (9) Pulmonary embolism Surgical Problems: (1) H/O sinus surgery (2) H/O: hysterectomy (3) History of hysterectomy (4) Previous section (5) S/P carpal tunnel release (6) Status post tonsillectomy and adenoidectomy Family History Cancer Hypertension Lung disease Social History Smoking Status: Never Smoker Alcohol Use: occasionally Drug Use: none Marital Status: Housing Status: lives with significant other Occupation Status: employed Current/Historical Medications Scheduled Amoxicillin (Amoxil), 500 MG PO TID Atorvastatin (Lipitor), 10 MG PO DAILY Folic Acid (Folic Acid), 1 MG PO DAILY Prednisone (Prednisone), 50 MG PO DAILY Warfarin Sod (Jantoven), 5 MG PO 6XWK Warfarin Sod (Jantoven), 7.5 MG PO WK Scheduled PRN Hydrocodone/Acetaminophen 5MG/325MG ([place] 5MG/325MG), 1-2 TABLET PO Q4H PRN for Pain Physical Exam Vital Signs Date Time Temp Pulse Resp B/P (MAP) Pulse Ox O2 Delivery O2 Flow Rate FiO2 12/31/17 17:19 76 18 132/82 98 12/31/17 17:16 76 14 132/82 12/31/17 16:48 99 Room Air 12/31/17 16:47 36.9 78 18 144/89 99 Room Air Physical Exam VITALS: Vitals are noted on the nurse's note and reviewed by myself. Vital signs stable. GENERAL: 62-year-old female, in no acute distress, nondiaphoretic, well- developed well-nourished. SKIN: The skin was without rashes, erythema, edema, or bruising. HEAD: Normocephalic atraumatic. EARS: External auditory canals clear, left tympanic membrane is pearly trent. Right tympanic membrane is bulging slightly erythematous and with a purulent effusion noted. EYES: Pupils equal round and reactive to light and accommodation. Conjunctivae without injection, sclerae without icterus. Extraocular movements intact. MOUTH: Mucous membranes moist. Pharynx is significantly erythematous. Tonsils absent. No exudate noted. NECK: Supple without nuchal rigidity. Lymphadenopathy in the submandibular chain bilaterally. Cervical spine is nontender. No JVD. PULMONARY: Clear to auscultation bilaterally CV: regular rate and rhythm without murmur: MUSCULOSKELETAL: Strength 5/5 throughout. NEURO: Patient was alert and oriented to person place and time. Normal sensation to touch. No focal neurological deficits. Medical Decision & Procedures Medications Administered Medications (Trade) Dose Ordered Sig/Yanira Route Start Time Stop Time Status Last Admin Dose Admin Dexamethasone Sodium Phosphate (Decadron Inj) 10 mg NOW ONCE PO 12/31/17 17:00 12/31/17 17:01 DC 12/31/17 17:16 10 MG Amoxicillin (Amoxil Cap) 500 mg STK-MED ONCE PO 12/31/17 17:11 12/31/17 17:12 DC 12/31/17 17:16 500 MG ED Course The patient was seen and examined She was given 1 dose of amoxicillin 500 mg. She was also given Decadron 10 mg p.o. Discharge instructions were reviewed, and she was discharged in good condition. Medical Decision Differential diagnosis: Strep pharyngitis, viral pharyngitis, other viral syndrome This patient is a 62-year-old female presents to the emergency department with complaints of a severe sore throat and ear pain. On exam, her pharynx was significantly erythematous. She tested positive for strep. She will be treated with a 10 day course of antibiotics. Patient was also given steroids for pain control/inflammation. She will follow-up with her primary care physician, and agrees to return with any worsening symptoms. This chart was completed in part utilizing [employer] Speech Voice Recognition software. Attempts were made to minimize the grammatical errors, random word insertions, pronoun errors and incomplete sentences. Any formal questions or concerns about the content, text or information contained within the body of this dictation should be directly addressed to the provider for clarification. Impression Primary Impression: Strep pharyngitis Departure Information Dispostion Home / Self-Care Condition GOOD Prescriptions Hydrocodone/Acetaminophen 5MG/325MG ([place] 5MG/325MG) Tab 1-2 TABLET PO Q4H Y for Pain, #15 TAB For Initial Treatment Prov: Vivien Su PA-C 12/31/17 Prednisone (Prednisone) 50 Mg Tab 50 MG PO DAILY for 4 Days, #4 TAB Prov: Vivien Su PA-C 12/31/17 Amoxicillin (AMOXIL) 500 Mg Cap 500 MG PO TID for 10 Days, #30 CAP Prov: Vivien Su PA-C 12/31/17 Referrals Carlos Gregory D.O. (PCP) Patient Instructions My [facility] Additional Instructions You were evaluated in the emergency department for a sore throat. You tested positive for strep. Please do not go to work for 24 hours. Take the entire course of steroids please take the ENTIRE course of amoxicillin Please follow-up with your primary care physician for a recheck within the next week Do not hesitate to return to the emergency department with any new, worsening or concerning symptoms It was a pleasure participating in your care today Work Instructions Return To Work: 2 days
[2017-12-31] MEDS ORDERED: HYDR-5688 PO (17:09)
[2017-12-31] MEDS ORDERED: AMOXICILLIN 250 MG CAP PO ONE (17:11)
[2017-12-31 17:19] VITALS: BP 132/82; PULSE 76; O2SAT 98
== END 2017-12-31 17:20 | disposition home or self-care (01) ==
LOC: C.EDB 16:39 → C.EDD 17:20
DX: J02.0 Streptococcal pharyngitis (principal); Z79.01 Long term (current) use of anticoagulants; Z51.81 Encounter for therapeutic drug level monitoring

== ENCOUNTER → 2018-02-02 | Outpatient (CLI) | payer OTHER ==
[~2018-02-02] MED LIST changes: +HYDR-5688 PO
--- NOTE | 2018-02-03 13:16 | MAMMOGRAPHY REPORT ---
BILATERAL DIGITAL SCREENING MAMMOGRAM TOMOSYNTHESIS WITH CAD: 02/02/2018 CLINICAL HISTORY: Routine screening. Patient has no complaints. TECHNIQUE: Breast tomosynthesis in addition to standard 2D mammography was performed. Current study was also evaluated with a Computer Aided Detection (CAD) system. COMPARISON: Comparison is made to exams dated: 01/28/2017 mammogram, 10/06/2015 mammogram, 10/05/2014 m ammogram, 10/04/2013 mammogram, 10/01/2012 mammogram, and 10/01/2011 mammogram - [facility] enter. BREAST COMPOSITION: There are scattered areas of fibroglandular density in both breasts. FINDINGS: The parenchymal pattern is unchanged. No developing mass, architectural distortion or clus ter of suspicious microcalcifications is seen in either breast. IMPRESSION: ACR BI-RADS CATEGORY 2: BENIGN There is no mammographic evidence of malignancy. A 1 year screening mammogram is recommended. The pa tient will receive written notification of the results. Approximately 10% of breast cancers are not detected with mammography. A negative mammographic report should not delay biopsy if a clinically suggestive mass is present. Tahira Ann M.D. ay/:02/02/2018 16:23:09 Heliarc Welder: Toya CASTRO(Esthela)(Skyler)([place]), [facility] letter sent: Normal 1/2 BI-RADS Code: ACR BI-RADS Category 2: Benign
== END | disposition home or self-care (01) ==
LOC: C.MAMM 15:55
PROVIDERS: ATTEND Family Medicine
DX: Z12.31 Encounter for screening mammogram for malignant neoplasm of breast (principal)

== ENCOUNTER → 2018-04-23 | Outpatient (CLI) | payer OTHER ==
[~2018-04-23] MED LIST changes: -HYDR-5688 PO
[2018-04-23 10:19] LABS: ALT/SGPT 25 U/L (12-78); AST/SGOT 23 U/L (15-37); LDL CHOLESTEROL (DIRECT) 100 mg/dl
== END | disposition home or self-care (01) ==
LOC: C.LAB 07:49
PROVIDERS: ATTEND Family Medicine
DX: E78.00 Pure hypercholesterolemia, unspecified (principal)